=== PATIENT | male | born 1975 | race Two or more races ===

== ENCOUNTER 2023-07-11 20:26 | Emergency (ER) | payer OTHER ==
[~2023-07-11] VITALS: Ht 182.9 cm; Wt 72.6 kg
[2023-07-11] MEDS ORDERED: TETANUS & DIPHTHERIA TOX,ADULT 0.5 ML VIAL IM ONE (21:00)
[2023-07-11] MEDS ORDERED: DUI500 PO (22:12)
== END 2023-07-11 22:16 | disposition home or self-care (01) ==
LOC: ER 20:26
DX: S01.22XA Laceration with foreign body of nose, initial encounter (principal); W18.39XA Other fall on same level, initial encounter; Y93.89 Activity, other specified; Y92.511 Restaurant or cafe as the place of occurrence of the external cause; S02.2XXA Fracture of nasal bones, initial encounter for closed fracture